=== PATIENT | female | born 1975 | race Two or more races ===

== ENCOUNTER 2023-07-24 12:11 | Outpatient (CLI) | payer OTHER | END 2023-07-24 12:16 | disposition home or self-care (01) | LOC: RAD 12:11 | PROVIDERS: ATTEND Orthopaedic Surgery | DX: M25.561 Pain in right knee (principal) ==

== ENCOUNTER 2023-08-09 09:48 | Outpatient (CLI) | payer OTHER | END 2023-08-09 09:50 | disposition home or self-care (01) | LOC: RAD 09:48 | PROVIDERS: ATTEND Orthopaedic Surgery | DX: M54.50 Low back pain, unspecified (principal) ==

== ENCOUNTER 2023-09-20 09:08 | Outpatient (CLI) | payer OTHER | END 2023-09-20 09:14 | disposition home or self-care (01) | LOC: SONOGRAMA 09:08 | DX: N28.1 Cyst of kidney, acquired (principal) ==